=== PATIENT | male | born 1955 | race Caucasian/White ===

== ENCOUNTER 2021-03-21 06:52 | Outpatient (CLI) | payer MEDICARE, OTHER ==
[~2021-03-21 06:52] MED LIST: ASPI-612 PO; LEVO175T7 PO
== END 2021-03-21 23:59 | disposition home or self-care (01) ==
LOC: LAB 06:52
PROVIDERS: ATTEND Surgery
DX: Z01.812 Encounter for preprocedural laboratory examination (principal); Z20.822 Contact with and (suspected) exposure to COVID-19

== ENCOUNTER 2021-03-23 07:11 | Day surgery (SDC) | payer MEDICARE, OTHER ==
[2021-03-23] MEDS ORDERED: ONDANSETRON 4 MG/2 ML VIAL IV ONE (07:12)
[2021-03-23] MEDS ORDERED: SEVOFLURANE 250 ML BOTTLE IH ONE (07:12)
[2021-03-23] MEDS ORDERED: PROPOFOL 200 MG/20 ML BOTTLE IV ONE (07:12)
[2021-03-23] MEDS ORDERED: EPHEDRINE SULFATE 50 MG/ML AMPUL IM ONE (07:12)
[2021-03-23] MEDS ORDERED: CEFAZOLIN 1 G VIAL IM ONE (07:12)
[2021-03-23] MEDS ORDERED: LIDOCAINE-MPF 2% 5 ML VIAL IJ ONE (07:12)
[2021-03-23] MEDS ORDERED: METOCLOPRAMIDE HCL 10 MG/2 ML VIAL IV ONE (07:12)
[2021-03-23] MEDS ORDERED: LIDOCAINE 1%-EPI 1:100,000 20 ML VIAL ONE (08:37)
[2021-03-23] MEDS ORDERED: BUPIVACAINE PF 0.5% 30 ML VIAL ONE (08:38)
== END 2021-03-23 12:50 | disposition home or self-care (01) ==
LOC: DS 07:11
PROVIDERS: ATTEND Surgery
DX: K60.2 Anal fissure, unspecified (principal); K63.5 Polyp of colon; K62.5 Hemorrhage of anus and rectum; K63.89 Other specified diseases of intestine; I10 Essential (primary) hypertension; E03.9 Hypothyroidism, unspecified; F17.210 Nicotine dependence, cigarettes, uncomplicated; Z86.010 Personal history of colon polyps; Z79.82 Long term (current) use of aspirin; Z79.899 Other long term (current) drug therapy; Z98.890 Other specified postprocedural states
CPT/HCPCS: 36415; 45380; 45385; 71045; 85730; J0690; J2405; J2765; J3490 ×4; J7120; A4217; A4649; J7030

== ENCOUNTER 2022-05-01 18:36 | Emergency (ER) | payer MEDICARE, OTHER ==
[~2022-05-01] VITALS: Ht 172.7 cm; Wt 90.7 kg
--- NOTE | 2022-05-01 18:51 | NUR ---
PT left W/O being seen by .
== END 2022-05-01 18:52 | disposition left against medical advice (07) ==
LOC: EDBD 18:36 → ER 18:36
DX: Z53.21 Procedure and treatment not carried out due to patient leaving prior to being seen by health care provider (principal)

== ENCOUNTER 2022-05-26 00:02 | Emergency (ER) | payer MEDICARE, OTHER | END 2022-05-26 01:29 | disposition left against medical advice (07) | LOC: ER 00:02 | DX: Z53.21 Procedure and treatment not carried out due to patient leaving prior to being seen by health care provider (principal) ==

== ENCOUNTER 2022-07-12 22:16 | Emergency (ER) | payer MEDICARE, OTHER ==
[~2022-07-12] VITALS: Ht 177.8 cm; Wt 102.1 kg
--- NOTE | 2022-07-12 23:14 | NUR ---
Patient discharged to home in stable condition. Written and verbal after care instructions given. Patient verbalizes understanding of instructions. Stressed follow up or return to ER for worsening s/s. Patient walked out accompained by son.
[2022-07-12 23:15] VITALS: BP 152/89
== END 2022-07-12 23:15 | disposition home or self-care (01) ==
LOC: ER 22:20
DX: I10 Essential (primary) hypertension (principal); E78.5 Hyperlipidemia, unspecified; F17.210 Nicotine dependence, cigarettes, uncomplicated; Z79.82 Long term (current) use of aspirin; Z79.899 Other long term (current) drug therapy
CPT/HCPCS: A4663